=== PATIENT | male | born 1975 | race African-American/Black ===

== ENCOUNTER 2022-01-06 15:04 | Observation (INO) ==
[2022-01-06] MEDS ORDERED: MORPHINE SULFATE INJ 2 MG INJ IVP PRN (16:11)
[2022-01-06] MEDS ORDERED: D5 1/2 NS 1,000 ML 1,000 ML IV SCH (17:00)
--- NOTE | 2022-01-06 17:48 | RAD ---
Abdomen radiograph single viewIndication: Small-bowel obstructionCOMPARISONAugust 2021 CT from outside facilityFINDINGSNG tube tip is over the stomach. Side port is near the GE junction. Hyperdense contrast seen in the colon. Cholecystectomy clips noted. No gross free air or pneumatosis seen. No abnormal calcific density identified. No markedly dilated loop of small bowel seen.IMPRESSION: NG tube projects over the stomach. Consider advancing several centimeters from most optimal positioning. No high-grade obstruction, free air or pneumatosis otherwise.Electronically signed by: HIPOLITO HARRISON (Jan 06, 2022 17:46:56)
[2022-01-06] MEDS: D5 1/2 NS 1,000 ML 1,000 ML IV SCH (18:50)
[2022-01-06] MEDS: DEMEROL INJ IVP PRN ×2 (19:23→23:58)
[2022-01-06] MEDS: ZOFRAN INJ 4 MG VIAL IVP PRN (19:23)
[2022-01-07] MEDS: D5 1/2 NS 1,000 ML 1,000 ML IV SCH ×2 (01:32→08:46)
[2022-01-07] MEDS: ZOFRAN INJ 4 MG VIAL IVP PRN (05:24)
[2022-01-07] MEDS: DEMEROL INJ IVP PRN ×2 (05:25→11:30)
[2022-01-07 06:08] LABS: BASOPHILS # (AUTO) 0.1 X10^3/uL (0.0-0.1); BASOPHILS % (AUTO) 0.8 % (0.2-1.0); EOSINOPHILS # (AUTO) 0.6 x10^3/uL (0.0-0.2); HEMATOCRIT 22.7 % (42.0-54.0); HEMOGLOBIN 8.3 g/dL (13.5-18.0); LYMPHOCYTES # (AUTO) 3.4 X10^3/uL (1.3-2.9); LYMPHOCYTES % (AUTO) 22.7 % (21.0-51.0); MEAN CORPUSCULAR HEMOGLOBIN 34.1 pg (27.0-34.0); MEAN CORPUSCULAR HGB CONC 36.7 g/dL (33.0-35.0); MEAN CORPUSCULAR VOLUME 92.9 fL (80.0-100.0); MEAN PLATELET VOLUME 9.9 fL (7.4-11.0); MONOCYTES # (AUTO) 1.2 x10^3/uL (0.3-0.8); MONOCYTES % (AUTO) 7.9 % (0.0-13.0); NEUTROPHILS # (AUTO) 9.8 x10^3/uL (2.2-4.8); NEUTROPHILS % (AUTO) 64.6 % (42.0-75.0); RED BLOOD COUNT 2.44 X10^6/uL (4.7-6.0); RED CELL DISTRIBUTION WIDTH 23.1 % (11.6-16.5); WHITE BLOOD COUNT 15.2 X10^3/uL (3.6-10.0)
--- NOTE | 2022-01-07 06:23 | RAD ---
HISTORYSmall bowel [id number]/16/2022 .br.br.br.br contrast is present throughout the colon. The abdominal gas pattern is nonspecific and nonobstructive. No abnormal masses or abnormal calcifications are identified.IMPRESSIONUnremarkable KUBElectronically signed by: FARZAD VELARDE (Jan 07, 2022 06:21:58)
[2022-01-07 06:34] LABS: ALANINE AMINOTRANSFERASE 19 Units/L (12-78); ALBUMIN 3.4 g/dL (3.4-5.0); ALKALINE PHOSPHATASE 129 Units/L (46-116); ASPARTATE AMINO TRANSFERASE 53 Units/L (15-37); BLOOD UREA NITROGEN 5 mg/dL (7-18); CALCIUM 8.9 mg/dL (8.5-10.1); CARBON DIOXIDE 22.1 mmol/L (21-32); CHLORIDE 105 mmol/L (98-107); CREATININE 0.75 mg/dL (0.70-1.30); SODIUM 139 mmol/L (136-145); TOTAL PROTEIN 7.6 g/dL (6.4-8.2); eGFR NON BLACK RACES > 60 (>60)
[2022-01-07 06:43] LABS: ANISOCYTOSIS 2+; OVALOCYTES PRESENT; PLATELET MORPHOLOGY COMMENT NORMAL (NORMAL); POIKILOCYTOSIS 1+; SICKLE CELLS PRESENT; TARGET CELLS PRESENT
[2022-01-07] MEDS ORDERED: PROTONIX INJ 40 MG VIAL IVP SCH (09:00)
[2022-01-07 14:53] VITALS: BP 138/63
== END 2022-01-07 15:05 | disposition home or self-care (01) ==
LOC: MED/SURG
PROVIDERS: ADMIT Surgery; ATTEND Surgery
DX: D57.1 Sickle-cell disease without crisis; K21.9 Gastro-esophageal reflux disease without esophagitis; K56.600 Partial intestinal obstruction, unspecified as to cause; E80.6 Other disorders of bilirubin metabolism; I10 Essential (primary) hypertension; R94.5 Abnormal results of liver function studies